=== PATIENT | male | born 1960 | race Caucasian/White ===

== ENCOUNTER 2016-03-24 19:59 | Emergency (ER) | payer MEDICAID, OTHER ==
[~2016-03-24] VITALS: Ht 175.3 cm; Wt 111.1 kg
[~2016-03-24 19:59] MED LIST: ENAL20TA70; FURO20TA; GLIP2.5T28; IBUP800T41; LEVE500T22; NOR5T
[2016-03-24 20:45] VITALS: BP 132/69
== END 2016-03-24 21:55 | disposition home or self-care (01) ==
LOC: ER 20:06
DX: S01.532A Puncture wound without foreign body of oral cavity, initial encounter (principal); L08.9 Local infection of the skin and subcutaneous tissue, unspecified; E11.9 Type 2 diabetes mellitus without complications; I10 Essential (primary) hypertension; Z79.899 Other long term (current) drug therapy; F17.210 Nicotine dependence, cigarettes, uncomplicated; X58.XXXA Exposure to other specified factors, initial encounter; Y93.89 Activity, other specified; Y99.8 Other external cause status; Y92.89 Other specified places as the place of occurrence of the external cause

== ENCOUNTER 2016-10-12 20:46 | Emergency (ER) | payer MEDICAID ==
[~2016-10-12] VITALS: Ht 175.3 cm; Wt 104.3 kg
[~2016-10-12 20:46] MED LIST changes: +HYDR-4663; -NOR5T
[2016-10-12 20:51] VITALS: BP 144/78
== END 2016-10-12 22:43 | disposition left against medical advice (07) ==
LOC: ER 20:48
DX: R21 Rash and other nonspecific skin eruption (principal); M25.562 Pain in left knee; Z53.21 Procedure and treatment not carried out due to patient leaving prior to being seen by health care provider